=== PATIENT | male | born 1970 | race Caucasian/White ===

== ENCOUNTER 2018-08-22 06:55 | Day surgery (SDC) | payer BC ==
[2018-08-17 15:23] VITALS: BMI 32.5
[~2018-08-22 06:55] MED LIST: LACTATED RINGERS 1,000 ML IV SCH
[2018-08-22 07:20] VITALS: TEMP 98.4
[2018-08-22] MEDS ORDERED: PROPOFOL 10 MG/ML 20 ML VIAL IV ONE (08:07)
[2018-08-22] MEDS ORDERED: LIDOCAINE 1% INJ 10MG/ML (20 ML MDV) ONE (08:07)
[2018-08-22 08:35] VITALS: RESP 16
[2018-08-22 08:54] VITALS: BP 120/72; PULSE 79
--- NOTE | 2018-08-22 09:46 | P.PCN ---
Date of Procedure: 08/22/18 Procedure(s) Performed: Procedure: Total colonoscopy. Preoperative diagnosis: Exam within normal limits. Preparation: HalfLytely prep. Sedation: Was provided by anesthesia. Brief clinical history: The patient is a 48-year-old male who is scheduled for this evaluation for screening for neoplasia age being his risk factor. There is no family history of colon cancer. He has no abdominal complaints, bleeding or anemia. He had one or 2 colonoscopies. He was in his 40s for issues with rectal bleeding. Procedure: With the patient on his left lateral decubitus position and after informed consent and adequate sedation, the perianal area was inspected and it did not show any fissures or fistulas. There were no masses felt on digital rectal examination. The Olympus CFQ 160L video colonoscope was then inserted in the rectum in the usual fashion and advanced to the cecum. The preparation was less than ideal. Where visualised, the mucosa appeared healthy. No polyps or tumors were seen or any obvious diverticular disease or other pathology. I retroflexed the endoscope in the rectum before the endoscope was withdrawn. Low -grade internal hemorrhoids were noted with no evidence of bleeding. The patient tolerated the procedure well. Plan: The patient was reassured. Discussed dietary measures and local care for hemorrhoids. He will follow up with you as planned. I recommended repeat exam in 5 years before going with a 10 years scheduled.
== END 2018-08-22 09:18 | disposition home or self-care (01) ==
LOC: ORWHC2ENDO 06:55
DX: Z12.11 Encounter for screening for malignant neoplasm of colon (principal); K64.8 Other hemorrhoids; F17.210 Nicotine dependence, cigarettes, uncomplicated; N40.0 Benign prostatic hyperplasia without lower urinary tract symptoms; Z79.899 Other long term (current) drug therapy; Z87.442 Personal history of urinary calculi
CPT/HCPCS: 45378; J2001; J2704

== ENCOUNTER 2022-07-13 21:16 | Observation (INO) | payer BC ==
[2022-07-14] MEDS ORDERED: KETOROLAC 15 MG/ML 1 ML VIAL IVP STA (00:19)
[2022-07-14] MEDS ORDERED: SODIUM CHLORIDE 0.9% 1,000 ML IV ONE (00:19)
[2022-07-14] MEDS ORDERED: TAMSULOSIN 0.4 MG CAP.ER.24H PO STA (00:20)
[2022-07-14] MEDS ORDERED: ONDANSETRON 4 MG/2 ML VIAL IVP STA (00:20)
[2022-07-14] MEDS ORDERED: MORPHINE SULFATE 4 MG/ML SYRINGE IV STA (00:20)
[2022-07-14 00:34] LABS: Basophils # (A) 0.1 k/uL (0-0.2); Basophils % (A) 0 %; Eosinophils # (A) 0.1 k/uL (0-0.7); Eosinophils % (A) 1 %; HCT 47.9 % (39.0-53.0); HGB 15.4 gm/dL (13.0-17.5); Lymphocytes # (A) 2.1 k/uL (1.0-4.8); Lymphocytes % (A) 17 %; MCH 30.2 pg (25.0-35.0); MCHC 32.1 g/dL (31.0-37.0); Mean Platelet Volume 8.1; Monocytes # (A) 0.6 k/uL (0-1.0); Monocytes % (A) 5 %; Neutrophils # (A) 9.7 k/uL (1.3-7.7); Neutrophils % (A) 77 %; Platelet Count 184 k/uL (150-450); RBC 5.09 m/uL (4.30-5.90); RDW 12.4 % (11.5-15.5); WBC 12.6 k/uL (3.8-10.6)
[2022-07-14 00:46] LABS: ALT 30 U/L (4-49); AST 26 U/L (17-59); African American GFR (CKD) >90 (>60 ml/min/1.73 sqM); Albumin 4.3 g/dL (3.5-5.0); Alkaline Phosphatase 99 U/L (38-126); Anion Gap 12 mmol/L; Blood Urea Nitrogen 14 mg/dL (9-20); Calcium 9.1 mg/dL (8.4-10.2); Carbon Dioxide 21 mmol/L (22-30); Chloride 104 mmol/L (98-107); Glucose 107 mg/dL (74-99); Non-African American GFR(CKD) 83 (>60 ml/min/1.73 sqM); Potassium 4.4 mmol/L (3.5-5.1); Sodium 137 mmol/L (137-145); Total Bilirubin 0.7 mg/dL (0.2-1.3); Total Protein 6.6 g/dL (6.3-8.2)
--- NOTE | 2022-07-14 00:51 | CT ---
EXAMINATION TYPE: CT abdomen pelvis wo con DATE OF EXAM: 07/14/2022 COMPARISON: 02/26/2013 HISTORY: pain/kidney stone. prior on PACS CT DLP: 795.8 mGycm Automated exposure control for dose reduction was used. Images obtained from the diaphragm to the floor the pelvis with no contrast. The lung bases are clear. No pleural effusion. Heart size is normal. No pericardial effusion. Liver and spleen are intact. Stomach is intact. No pancreatic mass. Gallbladder appears normal. The b ile ducts are not dilated. There is no adrenal mass. There is right-sided hydronephrosis with obstructing 9 mm calculus at the r ight ureteropelvic junction. There is 3 mm calculus lateral right kidney. Left kidney shows no sign o f stone or obstruction. No retroperitoneal adenopathy. Appendix appears normal. The bladder distends smoothly. There is small fat-containing left inguinal hernia.. No free fluid in the pelvis. There is no ascites or free air. No signs of bowel obstruction. The lumbar vertebrae have normal spac ing. There is a L5 spondylolysis with first-degree L5-S1 spondylolisthesis. No lumbar compression fra cture. Bony pelvis is intact. The hip joints are intact. IMPRESSION: Obstructing calculus at the right ureteropelvic junction with hydronephrosis. Obstruction similar to old exam. Normal appendix.
[2022-07-14] MEDS ORDERED: NALOXONE 0.4 MG/ML 1 ML VIAL IV PRN (00:59)
[2022-07-14] MEDS ORDERED: HYDROmorphone 1 MG/ML 1 ML SYRINGE IVP PRN (00:59)
--- NOTE | 2022-07-14 01:05 | ED ---
Back Pain HPI - General Chief Complaint: Back Pain/Injury Stated Complaint: Kidney Stone Time Seen by Provider: 07/14/22 00:15 Source: patient, RN notes reviewed Limitations: no limitations - History of Present Illness Initial Comments: Patient presents after having sudden onset of right back pain in the late afternoon. Patient states she's had waxing and waning sharp pain ever since. No alleviating or exacerbating factors. Some nausea. Radiates down into the suprapubic area. No hematuria. patient has had several kidney stones in the past which required intervention. No headache, no fever or chills, no changes in vision or hearing, no sore throat or difficulty with speech, no neck pain, no chest pain or shortness of breath, no abdominal pain, no nausea or vomiting, no changes in urination or bowel movements, no numbness or tingling, no extremity pain, no skin rashes or lesions. Past medical, surgical, social, and family history reviewed. MD Complaint: back pain - Related Data Home Medications Medication Instructions Recorded Confirmed Tamsulosin [Flomax] 0.4 mg PO BID 08/17/18 08/22/18 Allergies Allergy/AdvReac Type Severity Reaction Status Date / Time No Known Allergies Allergy Verified 07/13/22 21:43 Review of Systems ROS Statement: Those systems with pertinent positive or pertinent negative responses have been documented in the HPI. ROS Other: All systems not noted in ROS Statement are negative. Past Medical History Past Medical History: Prostate Disorder Additional Past Medical History / Comment(s): SCREENING. KIDNEY STONES History of Any Multi-Drug Resistant Organisms: None Reported Past Surgical History: Adenoidectomy, Tonsillectomy Additional Past Surgical History / Comment(s): COLONOSCOPY. SX FOR KIDNEY STONES X 2 Past Anesthesia/Blood Transfusion Reactions: No Reported Reaction Past Psychological History: No Psychological Hx Reported Smoking Status: Current every day smoker Past Alcohol Use History: Occasional Past Drug Use History: Marijuana - Past Family History Mother Family Medical History: No Reported History General Exam - General Exam Comments Initial Comments: Vital signs stable, patient is in distress secondary to right flank pain. Does not appear to be ill or toxic. Limitations: no limitations General appearance: alert, in distress Head exam: Present: atraumatic, normocephalic, normal inspection Eye exam: Present: normal appearance, PERRL, EOMI. Absent: scleral icterus, conjunctival injection, periorbital swelling ENT exam: Present: normal exam, mucous membranes moist Neck exam: Present: normal inspection, full ROM. Absent: tenderness, meningismus, lymphadenopathy Respiratory exam: Present: normal lung sounds bilaterally. Absent: respiratory distress, wheezes, rales, rhonchi, stridor Cardiovascular Exam: Present: regular rate, normal rhythm, normal heart sounds. Absent: systolic murmur, diastolic murmur, rubs, gallop, clicks GI/Abdominal exam: Present: soft, normal bowel sounds. Absent: distended, tenderness, guarding, rebound, rigid Extremities exam: Present: normal inspection, full ROM, normal capillary refill. Absent: tenderness, pedal edema, joint swelling, calf tenderness Back exam: Present: normal inspection, CVA tenderness (R). Absent: CVA tender ness (L) Neurological exam: Present: alert, oriented X3, CN II-XII intact Psychiatric exam: Present: normal affect, normal mood Skin exam: Present: warm, dry, intact, normal color. Absent: rash Course Vital Signs 07/13/22 21:42 Temperature 98.1 F Pulse Rate 60 Respiratory 18 Rate Blood Pressure 129/77 O2 Sat by Pulse 97 Oximetry - Reevaluation(s) Reevaluation #1: 07/14/22 00:56 patient has an obstructing calculus at the right ureteropelvic junction with hydronephrosis. - Consultations Consultation #1: Case discussed with on-call urology as well as the on-call APC from [facility] Medical Decision Making - Medical Decision Making patient computed tomography scan shows evidence of obstructive uropathy. I did discuss this case in detail with the on-call urologist, Dr. Almanza who once the patient admitted, kept nothing by mouth, will provide hydration, pain control, nausea control. All findings discussed with the patient. All questions answered. The case was discussed in detail with ED attending physician. Presentation, findings, treatment plan discussed in detail. Combination Building Inspector Dr. Aaron - Lab Data Result diagrams: 07/14/22 00:17 07/14/22 00:17 Lab Results 07/14/22 07/14/22 Range/Units 00:17 00:17 WBC 12.6 H (3.8-10.6) k/uL RBC 5.09 (4.30-5.90) m/uL Hgb 15.4 (13.0-17.5) gm/dL Hct 47.9 (39.0-53.0) % MCV 94.0 (80.0-100.0) fL MCH 30.2 (25.0-35.0) pg MCHC 32.1 (31.0-37.0) g/dL RDW 12.4 (11.5-15.5) % Plt Count 184 (150-450) k/uL MPV 8.1 Neutrophils % 77 % Lymphocytes % 17 % Monocytes % 5 % Eosinophils % 1 % Basophils % 0 % Neutrophils # 9.7 H (1.3-7.7) k/uL Lymphocytes # 2.1 (1.0-4.8) k/uL Monocytes # 0.6 (0-1.0) k/uL Eosinophils # 0.1 (0-0.7) k/uL Basophils # 0.1 (0-0.2) k/uL Sodium 137 (137-145) mmol/L Potassium 4.4 (3.5-5.1) mmol/L Chloride 104 (98-107) mmol/L Carbon Dioxide 21 L (22-30) mmol/L Anion Gap 12 mmol/L BUN 14 (9-20) mg/dL Creatinine 1.02 (0.66-1.25) mg/dL Est GFR (CKD-EPI)AfAm >90 (>60 ml/min/1.73 sqM) Est GFR (CKD-EPI)NonAf 83 (>60 ml/min/1.73 sqM) Glucose 107 H (74-99) mg/dL Calcium 9.1 (8.4-10.2) mg/dL Total Bilirubin 0.7 (0.2-1.3) mg/dL AST 26 (17-59) U/L ALT 30 (4-49) U/L Alkaline Phosphatase 99 (38-126) U/L Total Protein 6.6 (6.3-8.2) g/dL Albumin 4.3 (3.5-5.0) g/dL Disposition Clinical Impression: Acute unilateral obstructive uropathy, Hydronephrosis of right kidney, Renal colic on right side Disposition: [facility] Condition: Stable Referrals: Stefanie Hoff DO [Primary Care Provider] - 1-2 days Time of Disposition: 00:57 Decision to Admit Reason: Admit from EC Decision Date: 07/14/22
[2022-07-14] MEDS: SODIUM CHLORIDE 0.9% 1,000 ML IV SCH ×3 (08:58→17:21)
[2022-07-14] MEDS: ONDANSETRON 4 MG/2 ML VIAL IVP PRN ×2 (09:04→22:55)
[2022-07-14] MEDS: KETOROLAC 15 MG/ML 1 ML VIAL IVP PRN (09:05)
--- NOTE | 2022-07-14 09:24 | P.HPIM ---
History of Present Illness 52 years old male. With past medical history of kidney stone Patient presents because of right flank pain was going on off for a few days however yesterday at around 6:30 AM it was more severe about 08/03, patient could not bear the pain is completely emergency room his pain now is better controlled with Toradol related 03/03 as he describes. The pain is in the right flank and lower back radiating across the front into the right groin and testicle. He was able to be only once, he denies dysuria or urgency. He says he has chr onic difficulty in taking his Flomax at home. Vitals are stable and patient is afebrile. And other vitals are stable Labs showing WBC 7.7 and 12.6K. Rest of CBC, BMP, liver enzymes are unremarkable. CT of the abdomen and pelvis without contrast: Obstructing calculus at the right ureteropelvic junction with hydronephrosis. In the emergency room received Toradol, morphine, and loaded and normal saline Review of Systems Review of systems CONSTITUTIONAL: No fever, no malaise, no fatigue. HEENT: No recent visual problems or hearing problems. Denied any sore throat. CARDIOVASCULAR: No orthopnea, PND, no palpitations, no syncope. PULMONARY: No shortness of breath, no cough, no hemoptysis. GASTROINTESTINAL: No diarrhea, . Normoactive bowel sounds. NEUROLOGICAL: No headaches, no weakness, no numbness. HEMATOLOGICAL: Denies any bleeding or petechiae. GENITOURINARY: Denies any burning micturition, frequency, or urgency. MUSCULOSKELETAL/RHEUMATOLOGICAL: Denies any joint pain, swelling, or any muscle pain. ENDOCRINE: Denies any polyuria or polydipsia. Past Medical History Past Medical History: Prostate Disorder Additional Past Medical History / Comment(s): SCREENING. KIDNEY STONES History of Any Multi-Drug Resistant Organisms: None Reported Past Surgical History: Adenoidectomy, Tonsillectomy Additional Past Surgical History / Comment(s): COLONOSCOPY. SX FOR KIDNEY STONES X 2 Past Anesthesia/Blood Transfusion Reactions: No Reported Reaction Past Psychological History: No Psychological Hx Reported Smoking Status: Current every day smoker Past Alcohol Use History: Occasional Past Drug Use History: Marijuana - Past Family History Mother Family Medical History: No Reported History Medications and Allergies Home Medications Medication Instructions Recorded Confirmed Type Tamsulosin [Flomax] 0.4 mg PO BID 08/17/18 07/14/22 History Ascorbic Acid [Vitamin C] 1,000 mg PO DAILY 07/14/22 07/14/22 History [place]-3/Dha/Epa/Fish Oil [Fish Oil 1 cap PO DAILY 07/14/22 07/14/22 History 1,000 mg Softgel] Allergies Allergy/AdvReac Type Severity Reaction Status Date / Time No Known Allergies Allergy Verified 07/14/22 07:58 Physical Exam Vitals: Vital Signs Temp Pulse Resp BP Pulse Ox 07/14/22 08:53 46 L 18 115/78 97 07/14/22 05:08 97.2 F L 60 22 129/87 98 07/13/22 21:42 98.1 F 60 18 129/77 97 Intake and Output 07/13/22 07/14/22 07/14/22 22:59 06:59 14:59 Other: Weight 104.326 kg -GENERAL: The patient is alert and oriented x3, not in any acute distress. Obese HEENT: Pupils are round and equally reacting to light. EOMI. No scleral icterus. No conjunctival pallor. Normocephalic, atraumatic. No pharyngeal erythema. No thyromegaly. CARDIOVASCULAR: S1 and S2 present. No murmurs, rubs, or gallops. PULMONARY: Chest is clear to auscultation, no wheezing or crackles. -ABDOMEN: Soft, nondistended, normoactive bowel sounds. No palpable organomegaly. Right flank tenderness, no rebound tenderness or guarding MUSCULOSKELETAL: No joint swelling or deformity. EXTREMITIES: No cyanosis, clubbing, or pedal edema. NEUROLOGICAL: Gross neurological examination did not reveal any focal deficits. SKIN: No rashes. no petechiae. Obese Results CBC & Chem 7: 07/14/22 00:17 07/14/22 00:17 Labs: Abnormal Lab Results - Last 24 Hours (Table) 07/14/22 07/14/22 Range/Units 00:17 00:17 WBC 12.6 H (3.8-10.6) k/uL Neutrophils # 9.7 H (1.3-7.7) k/uL Carbon Dioxide 21 L (22-30) mmol/L Glucose 107 H (74-99) mg/dL Assessment and Plan Assessment: Obstructing right calculus at the right ureteropelvic junction with right hy dronephrosis right flank pain secondary to above Obesity with BMI of 31.2. Plan: This is a pleasant 52 years old male who presents with a right kidney stone and right hydronephrosis Continue with pain management Continue with IV fluid Urology consult Labs and medication were reviewed.. Continue same treatment. Continue with symptomatic treatment. Resume home medication. Monitor lytes and vitals. DVT and GI prophylaxis. Further recommendations as per clinical course of the patient DVT prophylaxis: Subcutaneous heparin GI Prophylaxis: Pepcid
--- NOTE | 2022-07-14 12:51 | P.GSCN ---
History of Present Illness Consult date: 07/14/22 Reason for Consult: Right renal colic Requesting physician: Thor E Sheet History of present illness: The patient is a 52-year-old white male with a history of kidney stones. He has previously been treated by Dr. Encarnacion. He underwent ureteroscopy with laser lithotripsy, followed by ESWL to treat a right renal pelvic calculus in 2012. His calculi were composed of calcium oxalate. Yesterday evening, he experienced acute onset of right flank pain radiating to the right groin. The pain was severe, and he presented to the ER. CT scan showed evidence of right hydronephrosis due to an 8.6 mm right UPJ calculus. An additional 3 mm right renal calculus was seen. The patient's pain was intractable and he was admitted for pain management and IV hydration. Review of Systems - Constitutional Denies chills, Denies fever - Genitourinary Reports flank pain, Reports kidney stones, Denies dysuria, Denies hematuria Past Medical History Past Medical History: Prostate Disorder Additional Past Medical History / Comment(s): SCREENING. KIDNEY STONES History of Any Multi-Drug Resistant Organisms: None Reported Past Surgical History: Adenoidectomy, Tonsillectomy Additional Past Surgical History / Comment(s): COLONOSCOPY. SX FOR KIDNEY STONES X 2 Past Anesthesia/Blood Transfusion Reactions: No Reported Reaction Past Psychological History: No Psychological Hx Reported Smoking Status: Current every day smoker Past Alcohol Use History: Occasional Past Drug Use History: Marijuana - Past Family History Mother Family Medical History: No Reported History Medications and Allergies Home Medications Medication Instructions Recorded Confirmed Type Tamsulosin [Flomax] 0.4 mg PO BID 08/17/18 07/14/22 History Ascorbic Acid [Vitamin C] 1,000 mg PO DAILY 07/14/22 07/14/22 History [place]-3/Dha/Epa/Fish Oil [Fish Oil 1 cap PO DAILY 07/14/22 07/14/22 History 1,000 mg Softgel] Allergies Allergy/AdvReac Type Severity Reaction Status Date / Time No Known Allergies Allergy Verified 07/14/22 12:45 Surgical - Exam Vital Signs Temp Pulse Resp BP Pulse Ox 98.1 F 60 18 129/77 97 07/13/22 21:42 07/13/22 21:42 07/13/22 21:42 07/13/22 21:42 07/13/22 21:42 - General well developed, well nourished, moderate distress - Neck no masses, trachea midline - Respiratory normal respiratory effort - Abdomen Abdomen: soft, non tender, no guarding, no rigid, no rebound - Psychiatric oriented to time, oriented to person, oriented to place, speech is normal, memory intact Results - Labs 07/14/22 00:17 07/14/22 00:17 Abnormal Lab Results - Last 24 Hours (Table) 07/14/22 07/14/22 Range/Units 00:17 00:17 WBC 12.6 H (3.8-10.6) k/uL Neutrophils # 9.7 H (1.3-7.7) k/uL Carbon Dioxide 21 L (22-30) mmol/L Glucose 107 H (74-99) mg/dL Diabetes panel 07/14/22 Range/Units 00:17 Sodium 137 (137-145) mmol/L Potassium 4.4 (3.5-5.1) mmol/L Chloride 104 (98-107) mmol/L Carbon Dioxide 21 L (22-30) mmol/L BUN 14 (9-20) mg/dL Creatinine 1.02 (0.66-1.25) mg/dL Glucose 107 H (74-99) mg/dL Calcium 9.1 (8.4-10.2) mg/dL AST 26 (17-59) U/L ALT 30 (4-49) U/L Alkaline Phosphatase 99 (38-126) U/L Total Protein 6.6 (6.3-8.2) g/dL Albumin 4.3 (3.5-5.0) g/dL Calcium panel 07/14/22 Range/Units 00:17 Calcium 9.1 (8.4-10.2) mg/dL Albumin 4.3 (3.5-5.0) g/dL Pituitary panel 07/14/22 Range/Units 00:17 Sodium 137 (137-145) mmol/L Potassium 4.4 (3.5-5.1) mmol/L Chloride 104 (98-107) mmol/L Carbon Dioxide 21 L (22-30) mmol/L BUN 14 (9-20) mg/dL Creatinine 1.02 (0.66-1.25) mg/dL Glucose 107 H (74-99) mg/dL Calcium 9.1 (8.4-10.2) mg/dL Adrenal panel 07/14/22 Range/Units 00:17 Sodium 137 (137-145) mmol/L Potassium 4.4 (3.5-5.1) mmol/L Chloride 104 (98-107) mmol/L Carbon Dioxide 21 L (22-30) mmol/L BUN 14 (9-20) mg/dL Creatinine 1.02 (0.66-1.25) mg/dL Glucose 107 H (74-99) mg/dL Calcium 9.1 (8.4-10.2) mg/dL Total Bilirubin 0.7 (0.2-1.3) mg/dL AST 26 (17-59) U/L ALT 30 (4-49) U/L Alkaline Phosphatase 99 (38-126) U/L Total Protein 6.6 (6.3-8.2) g/dL Albumin 4.3 (3.5-5.0) g/dL - Imaging CT scan - abdomen: report reviewed, image reviewed Assessment and Plan (1) Calculus of ureter Current Visit: Yes Status: Acute Code(s): N20.1 - CALCULUS OF URETER SNOMED Code(s): 75363708 (2) Hydronephrosis with renal and ureteral calculous obstruction Current Visit: Yes Status: Acute Code(s): N13.2 - HYDRONEPHROSIS WITH RENAL AND URETERAL CALCULOUS OBSTRUCTION SNOMED Code(s): 853862813 Plan: I had a lengthy discussion with Mr. Montez, reviewing alternative treatment options. He will undergo cystoscopy with right ureteral stent placement later today. I am hopeful that this will alleviate his symptoms sufficiently that he can then be managed as an outpatient. Arrangements will be made for him to undergo elective ureteroscopy with laser lithotripsy or ESWL in 2-3 weeks. Time with Patient: Greater than 30
[2022-07-14 12:52] LABS: Appearance,Urine Clear (Clear); Bilirubin,Urine Negative (Negative); Blood,Urine Negative (Negative); Calcium Oxalate Crystals,Urine Rare /hpf; Color,Urine Dark Yellow; Glucose,Urine (UA) Negative (Negative); Hyaline Casts,Urine 3 /lpf (0-2); Ketones,Urine 1+ (Negative); Leukocyte Esterase,Urine Negative (Negative); Mucus,Urine Few /hpf; Nitrite,Urine Negative (Negative); PH, Urine 5.5 (5.0-8.0); Protein,Urine 1+ (Negative); RBC,Urine 74 /hpf (0-5); Specific Gravity,Urine 1.034 (1.001-1.035); Urobilinogen,Urine <2.0 mg/dL (<2.0); WBC,Urine 4 /hpf (0-5)
[2022-07-14] MEDS ORDERED: DEXAMETHASONE SOD PHOSPHATE 4 MG/ML 1 ML VIAL IV ONE (13:11)
[2022-07-14] MEDS ORDERED: LACTATED RINGERS 1,000 ML IV ONE ×2 (13:12→14:36)
[2022-07-14] MEDS ORDERED: ONDANSETRON 4 MG/2 ML VIAL IVP ONE (13:12)
[2022-07-14] MEDS ORDERED: fentaNYL (PF) 50 MCG/ML 2 ML AMP ONE (13:39)
[2022-07-14] MEDS ORDERED: SUCCINYLCHOLINE CHLORIDE 200 MG/10 ML VIAL IV ONE (13:39)
[2022-07-14] MEDS ORDERED: MIDAZOLAM 2 MG/2 ML VIAL ONE (13:39)
[2022-07-14] MEDS ORDERED: LIDOCAINE 2% INJ 20 MG/ML (2 ML VIAL) ONE (13:39)
[2022-07-14] MEDS ORDERED: PROPOFOL 10 MG/ML 20 ML VIAL IV ONE (13:39)
--- NOTE | 2022-07-14 14:38 | FL ---
Intraoperative/procedural fluoroscopic services were provided. Total fluoroscopy time is 10 seconds w ith a total of 3 submitted images to PACS. Please see the operative/procedural note for further detai ls.
--- NOTE | 2022-07-14 14:45 | P.OP ---
Date of Procedure: 07/14/22 Preoperative Diagnosis: Right hydronephrosis secondary to right UPJ calculus Postoperative Diagnosis: Same Procedure(s) Performed: Cystoscopy, right ureteral stent insertion Anesthesia: NICK Surgeon: Walter Almanza Estimated Blood Loss (ml): 0 IV fluids (ml): 700 Pathology: none sent Condition: stable Disposition: PACU Indications for Procedure: The patient is a 52-year-old white male with a history of kidney stones. He has previously been treated by Dr. Encarnacion. He underwent ureteroscopy with laser lithotripsy, followed by ESWL to treat a right renal pelvic calculus in 2012. His calculi were composed of calcium oxalate. Yesterday evening, he experienced acute onset of right flank pain radiating to the right groin. The pain was severe, and he presented to the ER. CT scan showed evidence of right hydronephrosis due to an 8.6 mm right UPJ calculus. An additional 3 mm right renal calculus was seen. The patient's pain was intractable and he was admitted for pain management and IV hydration. He now comes for right ureteral stent insertion. Operative Findings: Obstructing right UPJ calculus. A ureteral stent was successfully placed, with drainage of concentrated urine containing old blood. Description of Procedure: The patient was taken to the operating room and placed in the dorsolithotomy position, with legs supported in Randolph stirrups. The external genitalia was prepped and draped sterilely. The 30 lens was used to introduce the 22-Colombian Stortz cystoscopic sheath through the urethra and into the bladder under direct vision. The prostatic urethra showed evidence of trilobar enlargement with visual occlusion. The bladder was examined in its entirety. Both ureteral orifices were of normal anatomic location and configuration. No tumors or foreign bodies were seen. A 0.035 inch Glidewire was passed through the cystoscope. The right ureteral orifice was cannulated, and the Glidewire was slowly advanced beyond the calculus and up to the renal pelvis. A 26 cm, 6- Colombian double-J ureteral stent was placed over the wire. Proper stent positioning was verified fluoroscopically and endoscopically. The calculus was pushed back into the kidney. Concentrated urine containing old blood drained through the stent. The bladder was emptied and the cystoscope removed. The patient tolerated the procedure well was taken to the recovery room in stable condition.
[2022-07-14 14:50] VITALS: RESP 16
[2022-07-14] MEDS ORDERED: TAMSULOSIN 0.4 MG CAP.ER.24H PO SCH (18:30)
[2022-07-14] MEDS: HEPARIN SODIUM,PORCINE/PF 5,000 UNIT/0.5 ML SYRINGE SQ SCH (20:18)
[2022-07-14] MEDS: FAMOTIDINE 20 MG/2 ML VIAL IV SCH (20:19)
[2022-07-15] MEDS: KETOROLAC 15 MG/ML 1 ML VIAL IVP PRN (02:09)
[2022-07-15 02:41] VITALS: PULSE 65
[2022-07-15] MEDS: SODIUM CHLORIDE 0.9% 1,000 ML IV SCH (03:44)
[2022-07-15 07:05] LABS: HCT 45.1 % (39.0-53.0); HGB 14.7 gm/dL (13.0-17.5); MCH 31.2 pg (25.0-35.0); MCHC 32.6 g/dL (31.0-37.0); MCV 95.8 fL (80.0-100.0); Platelet Count 168 k/uL (150-450); RBC 4.71 m/uL (4.30-5.90); RDW 12.3 % (11.5-15.5)
[2022-07-15] MEDS ORDERED: HYDROcodone/APAP 5-325MG 1 EACH TAB PO PRN (08:26)
[2022-07-15] MEDS ORDERED: DOCUSATE 100 MG CAP PO PRN (08:26)
[2022-07-15] MEDS: FAMOTIDINE 20 MG/2 ML VIAL IV SCH (08:43)
--- NOTE | 2022-07-15 09:55 | P.PN ---
Subjective Progress Note Date: 07/15/22 Principal diagnosis: Right ureteral calculus Mr. Montez underwent right ureteral stent insertion yesterday. He experienced considerable pain yesterday, but is feeling somewhat better today. He continues to report some difficulty voiding, as well as right flank discomfort during micturition. I reassured him that the latter is the result of the ureteral stent. He experienced some hematuria postoperatively, which is improving. He also reports mild dysuria. Objective - Vital Signs Vital signs: Vital Signs Temp 98.3 F 07/15/22 02:00 Pulse 65 07/15/22 02:00 Resp 16 07/15/22 02:00 BP 143/77 07/15/22 02:00 Pulse Ox 93 L 07/15/22 02:00 FiO2 Intake & Output 07/14/22 07/15/22 07/15/22 18:59 06:59 18:59 Intake Total 950 Output Total 100 Balance 850 Weight 104.326 kg Intake: IV 950 Output: Urine 100 Estimated Blood Loss 0 Other: Voiding Method Toilet Toilet # Voids 2 - Constitutional General appearance: Present: average body habitus, no acute distress - Psychiatric Psychiatric: Present: A&O x's 3, appropriate affect - Labs CBC & Chem 7: 07/15/22 06:45 07/14/22 00:17 Labs: Abnormal Lab Results - Last 24 Hours (Table) 07/14/22 07/15/22 Range/Units 12:31 06:45 WBC 16.0 H (3.8-10.6) k/uL Urine Protein 1+ H (Negative) Urine Ketones 1+ H (Negative) Urine RBC 74 H (0-5) /hpf Calcium Oxalate Crystal Rare H (None) /hpf Hyaline Casts 3 H (0-2) /lpf Urine Mucus Few H (None) /hpf Assessment and Plan (1) Calculus of ureter Current Visit: Yes Status: Acute Code(s): N20.1 - CALCULUS OF URETER SNOMED Code(s): 49350326 (2) Hydronephrosis with renal and ureteral calculous obstruction Current Visit: Yes Status: Acute Code(s): N13.2 - HYDRONEPHROSIS WITH RENAL AND URETERAL CALCULOUS OBSTRUCTION SNOMED Code(s): 759501129 (3) Benign prostatic hyperplasia with lower urinary tract symptoms Current Visit: Yes Status: Acute Code(s): N40.1 - BENIGN PROSTATIC HYPERPLASIA WITH LOWER URINARY TRACT SYMP SNOMED Code(s): 414245280 Plan: I have suggested to Mr. Montez that he continue to take tamsulosin 0.8 mg daily. Bladder scan will be checked to confirm the bladder emptying is adequate. I believe the leukocytosis as the results of his renal colic and the procedure, and from my standpoint he is stable for discharge as long as he is comfortable enough to allow this. Arrangements will be made for him to undergo right ureteroscopy with laser lithotripsy as an outpatient.
[2022-07-15] MEDS: HEPARIN SODIUM,PORCINE/PF 5,000 UNIT/0.5 ML SYRINGE SQ SCH (10:05)
[2022-07-15 11:13] VITALS: BP 115/76; TEMP 98
[2022-07-15] MEDS ORDERED: LIDOCAINE 2% INJ 20 MG/ML (2 ML VIAL) ONE (13:39)
[2022-07-15] MEDS ORDERED: SUCCINYLCHOLINE CHLORIDE 200 MG/10 ML VIAL IV ONE (13:39)
[2022-07-15] MEDS ORDERED: fentaNYL (PF) 50 MCG/ML 2 ML AMP ONE (13:39)
[2022-07-15] MEDS ORDERED: MIDAZOLAM 2 MG/2 ML VIAL ONE (13:39)
[2022-07-15] MEDS ORDERED: PROPOFOL 10 MG/ML 20 ML VIAL IV ONE (13:39)
[2022-07-15] MEDS ORDERED: FAMOTIDINE 20 MG TAB PO SCH (21:00)
--- NOTE | 2022-07-15 22:12 | P.DS ---
Providers Date of admission: 07/14/22 01:54 Attending physician: Marisa Gueavra Consults: 07/14/22 00:59 Consult Physician Stat Consulting Provider: Walter Almanza Reason/Comments: Obstructive uropathy Do you want consulting provider notified?: Already Contacted Primary care physician: Stefanie Hoff [facility] Course: Diagnoses: Obstructing right calculus at the right ureteropelvic junction with right hydronephrosis right flank pain secondary to above Obesity with BMI of 31.2. Hospital course: 52 years old male. With past medical history of kidney stone Patient presents because of right flank pain was going on off for a few days CT of the abdomen and pelvis without contrast: Obstructing calculus at the right ureteropelvic junction with hydronephrosis. Patient evaluated by urologist and he underwent right ureteral stent placement through cystoscopy, he pushed the 3 mm right ureteral stone back. Patient was sent to the general medical floor in stable condition. With plan for follow-up as an outpatient for possible ureteroscopy and laser lithotripsy in 2-3 weeks per recommendation of Dr. singh as i saw him today and talked to him , Dr. singh confirmed to me patient is stable for discharge and he confirmed to me no need for antibiotics upon discharge. Today patient is back to baseline, he was pleasant and he was asked to be discharged home today. Dr. garber recomme nded Toradol for pain control upon discharge which is provided for him. Also Flomax. Patient was cleared for discharge by Dr. singh Problems and management plan were discussed with the patient and he verbalized understanding and acceptance Patient was found stable and can be discharged home however he needs follow-up as an outpatient. Patient was instructed to follow up with PCP Dr. Lele willingham one week and patient agrees Patient was instructed to follow up with Dr. singh in 2 weeks and he agrees to call and make appointment Physical exam Gen: patient is a AAOx3, no distress CVS: S1-S2, RRR, no murmur Lungs: B/L CTA, no wheezing Abdomen: soft, no distention, no tenderness, positive bowel sounds Extremity: no leg edema or induration Time spent more than 35 minutes Patient Condition at Discharge: Stable Plan - Discharge Summary New Discharge Prescriptions: New Docusate [Colace] 100 mg PO BID PRN 5 Days #10 cap PRN Reason: Constipation Ketorolac [Toradol] 10 mg PO Q6HR 3 Days #10 tab Continue Tamsulosin [Flomax] 0.4 mg PO BID #60 cap [place]-3/Dha/Epa/Fish Oil [Fish Oil 1,000 mg Softgel] 1 cap PO DAILY Ascorbic Acid [Vitamin C] 1,000 mg PO DAILY Discharge Medication List Ascorbic Acid [Vitamin C] 1,000 mg PO DAILY 07/14/22 [History] [place]-3/Dha/Epa/Fish Oil [Fish Oil 1,000 mg Softgel] 1 cap PO DAILY 07/14/22 [History] Docusate [Colace] 100 mg PO BID PRN 5 Days #10 cap 07/15/22 [Rx] Ketorolac [Toradol] 10 mg PO Q6HR 3 Days #10 tab 07/15/22 [Rx] Tamsulosin [Flomax] 0.4 mg PO BID #60 cap 07/15/22 [Rx] Follow up Appointment(s)/Referral(s): Walter Almanza MD [STAFF PHYSICIAN] - 1 Week (OFFICE WILL CONTACT YOU WITH APPOINTMENT DATE/TIME) Stefanie Hoff DO [Primary Care Provider] - 07/17/22 9:00 am (you have appoinement with him on this tuesday 07/17 at 9 am as you informed the medical team , please follow up with your appointment or call to make one in one week) Fred Peña MD [STAFF PHYSICIAN] - 1 Week (Cardiolgist for your slow heart rate. Please call and schedule appointment. ) Patient Instructions/Handouts: Kidney Stones (DC), Renal Colic (GEN), Hydronephrosis (DC), Ureteral Stent Placement (DC) Activity/Diet/Wound Care/Special Instructions: Heart healthy diet activity is restricted till you see your doctor Discharge Disposition: HOME SELF-CARE
== END 2022-07-15 11:00 | disposition home or self-care (01) ==
LOC: EC 21:16 → 4SSUR 07-14 01:54 → INTOOBSV 07-14 01:54 → 4SSUR 07-14 14:55 → UNDODISIN 07-15 11:00
PROVIDERS: ADMIT Internal Medicine; ATTEND Internal Medicine
DX: N13.2 Hydronephrosis with renal and ureteral calculous obstruction (principal); K40.90 Unilateral inguinal hernia, without obstruction or gangrene, not specified as recurrent; M43.17 Spondylolisthesis, lumbosacral region; F17.200 Nicotine dependence, unspecified, uncomplicated; F12.90 Cannabis use, unspecified, uncomplicated; N40.0 Benign prostatic hyperplasia without lower urinary tract symptoms; E66.9 Obesity, unspecified; Z79.899 Other long term (current) drug therapy; Z68.31 Body mass index [BMI] 31.0-31.9, adult
CPT/HCPCS: 96376 ×3; 96372 ×2; 96375 ×2; 96361; 96374; 99285; 36415; 80053; 84443; 85025; 85027; 81001; 74176; 52332; G0378 ×2; C2625; C1769; J2250; J0330; J2270; J1100; J2405; J3010; J1170; J1885 ×2; J2704; J1644 ×2; J2001

== ENCOUNTER 2022-07-21 11:54 | Day surgery (SDC) | payer BC ==
[2022-07-20 09:58] VITALS: BMI 31.1
[2022-07-21] MEDS ORDERED: LACTATED RINGERS 1,000 ML IV ONE ×2 (12:11→14:32)
--- NOTE | 2022-07-21 12:24 | XR ---
KUB HISTORY: Right kidney stone Frontal KUB submitted and correlated to prior CT dated 07/14/2022 There is a right-sided double-J stent in place. Proximal right ureteral calcification is again noted. There are stable calcifications within the pelvis. No evident bowel obstruction or pneumoperitoneum. No other significant interval change. IMPRESSION: Proximal right ureteral calculus.
[2022-07-21] MEDS ORDERED: ONDANSETRON 4 MG/2 ML VIAL ONE (12:27)
--- NOTE | 2022-07-21 13:36 | P.GSHP ---
History of Present Illness H&P Date: 07/21/22 Chief Complaint: Right renal colic The patient is a 52-year-old white male with a history of kidney stones. He has previously been treated by Dr. Encarnacion. He underwent ureteroscopy with laser lithotripsy, followed by ESWL to treat a right renal pelvic calculus in 2012. His calculi were composed of calcium oxalate. Last week, he experienced acute onset of right flank pain radiating to the right groin. The pain was severe, and he presented to the ER. CT scan showed evidence of right hydronephrosis due to an 8.6 mm right UPJ calculus. An additional 3 mm right renal calculus was seen. The patient's pain was intractable and he was admitted for pain management and IV hydration. He underwent right ureteral stent insertion. He now comes for ureteroscopic removal of the calculi. - Constitutional Constitutional: Denies chills, Denies fever - Genitourinary (Male) Genitourinary: Reports flank pain, Reports kidney stones, Denies dysuria, Denies hematuria Past Medical History Past Medical History: COPD, GERD/Reflux, Hearing Disorder / Deafness, Hyperlipidemia, Prostate Disorder Additional Past Medical History / Comment(s): Hx of and current kidney stones. Tinnitus. "Cholesterol is a little high, no treatment needed." Enlarged prostate. History of Any Multi-Drug Resistant Organisms: None Reported Past Surgical History: Adenoidectomy, Tonsillectomy Additional Past Surgical History / Comment(s): Colonoscopy, lithotripsy X2, right ureteral stent placement. Past Anesthesia/Blood Transfusion Reactions: Previous Problems w/ Anesthesia, Motion Sickness Additional Past Anesthesia/Blood Transfusion Reaction / Comment(s): "With ureteral stent placement HR went really low - mid to low 40's". Past Psychological History: No Psychological Hx Reported Smoking Status: Current every day smoker Past Alcohol Use History: Occasional Additional Past Alcohol Use History / Comment(s): SMOKES <1PPD-OFF AND ON SINCE AGE 16(quit from age [age]). Past Drug Use History: Marijuana Additional Drug Use History / Comment(s): LAST USED MARIJUANA 2 WEEKS AGO-INF ORMED TO REFRAIN FROM USE FOR AT LEAST 24 HOURS PRIOR TO PROCEDURE. - Past Family History Mother Family Medical History: No Reported History Medications and Allergies Home Medications Medication Instructions Recorded Confirmed Type Ascorbic Acid [Vitamin C] 1,000 mg PO DAILY 07/14/22 07/20/22 History Docusate [Colace] 100 mg PO BID PRN 5 Days #10 cap 07/15/22 07/20/22 Rx Tamsulosin [Flomax] 0.4 mg PO BID #60 cap 07/15/22 07/21/22 Rx Cholecalciferol [Vitamin D3 (25 25 mcg PO DAILY 07/20/22 07/20/22 History Mcg = 1000 Iu)] Ketorolac [Toradol] 10 mg PO Q6HR PRN 07/20/22 07/21/22 History Vitamin B-12 (Unknown Dose) 1 tab PO DAILY 07/20/22 07/20/22 History Vitamin E (Dl,Tocopheryl Acet) 500 mg PO DAILY 07/20/22 07/20/22 History [Vitamin E (1000 Iu = 450 MG)] Allergies Allergy/AdvReac Type Severity Reaction Status Date / Time No Known Allergies Allergy Verified 07/21/22 12:25 Surgical - Exam Vital Signs Temp Pulse Resp BP Pulse Ox 97.2 F L 88 18 117/75 97 07/21/22 12:23 07/21/22 12:23 07/21/22 12:23 07/21/22 12:23 07/21/22 12:23 - General well developed, well nourished, no distress - Respiratory normal respiratory effort - Abdomen Abdomen: soft, non tender, no guarding, no rigid, no rebound - Genitourinary normal penis with no external lesions, testicles non-tender - Psychiatric oriented to time, oriented to person, oriented to place, speech is normal, memory intact Results - Imaging Abdominal x-ray: report reviewed, image reviewed CT scan - abdomen: report reviewed, image reviewed Assessment and Plan (1) Calculus of ureter Current Visit: No Status: Acute Code(s): N20.1 - CALCULUS OF URETER SNOMED Code(s): 06494374 (2) Calculus of kidney Current Visit: Yes Status: Acute Code(s): N20.0 - CALCULUS OF KIDNEY SNOMED Code(s): 18374132 Plan: Cystoscopy, right ureteroscopy with Holmium laser lithotripsy and possible stone basketing. Replacement of the right ureteral stent will likely be necessary. The procedure then reviewed in detail with the patient and his . Air aware of potential risks, which include anesthesia, bleeding, infection, and ureteral injury.
[2022-07-21] MEDS ORDERED: ONDANSETRON 4 MG/2 ML VIAL IVP ONE (13:38)
[2022-07-21] MEDS ORDERED: DEXAMETHASONE SOD PHOSPHATE 4 MG/ML 1 ML VIAL IVP ONE (13:39)
[2022-07-21] MEDS ORDERED: NEOSTIGMINE 1 MG/ML 10 ML VIAL ONE (13:50)
[2022-07-21] MEDS ORDERED: ROCURONIUM 10 MG/ML (5 ML VIAL) IV ONE (13:50)
[2022-07-21] MEDS ORDERED: PROPOFOL 10 MG/ML 20 ML VIAL IV ONE (13:50)
[2022-07-21] MEDS ORDERED: LIDOCAINE 2% INJ 20 MG/ML (2 ML VIAL) ONE (13:50)
[2022-07-21] MEDS ORDERED: MIDAZOLAM 2 MG/2 ML VIAL ONE (13:50)
[2022-07-21] MEDS ORDERED: PHENYLEPHRINE-0.9% NACL SYG 1,000 MCG/10 ML SYRINGE ONE (13:50)
[2022-07-21] MEDS ORDERED: GLYCOPYRROLATE 0.2 MG/ML 2 ML VIAL ONE (13:50)
[2022-07-21] MEDS ORDERED: fentaNYL (PF) 50 MCG/ML 2 ML AMP ONE (13:50)
[2022-07-21] MEDS ORDERED: ePHEDrine 50 MG/ML 1 ML VIAL ONE (13:50)
[2022-07-21] MEDS ORDERED: SUCCINYLCHOLINE CHLORIDE 200 MG/10 ML VIAL IV ONE (13:50)
--- NOTE | 2022-07-21 15:34 | P.OP ---
Date of Procedure: 07/21/22 Preoperative Diagnosis: Right ureteral calculus, right renal calculus Postoperative Diagnosis: Same Procedure(s) Performed: Cystoscopy, right ureteroscopy with Holmium laser lithotripsy and stone basketing, right ureteral stent change Anesthesia: ZHENA Surgeon: Walter Almanza Estimated Blood Loss (ml): 5 IV fluids (ml): 1,000 Pathology: other (Calculus fragments, sent for chemical analysis) Condition: stable Disposition: PACU Indications for Procedure: The patient is a 52-year-old white male with a history of kidney stones. He has previously been treated by Dr. Encarnacion. He underwent ureteroscopy with laser lithotripsy, followed by ESWL to treat a right renal pelvic calculus in 2012. His calculi were composed of calcium oxalate. Last week, he experienced acute onset of right flank pain radiating to the right groin. The pain was severe, and he presented to the ER. CT scan showed evidence of right hydronephrosis due to an 8.6 mm right UPJ calculus. An additional 3 mm right renal calculus was seen. The patient's pain was intractable and he was admitted for pain management and IV hydration. He underwent right ureteral stent insertion. He now comes for ureteroscopic removal of the calculi. Operative Findings: Right proximal ureteral calculus and right mid pole renal calculus. The renal calculus was removed via stone basketing. The ureteral calculus was removed via laser lithotripsy and stone basketing. Description of Procedure: The patient was taken to the operating room and placed in the dorsolithotomy position, with legs supported in Randolph stirrups. The external genitalia was prepped and draped sterilely. The 30 lens was used to introduce the 21-Irish Oneal cystoscopic sheath through the urethra and into the bladder under direct vision. The prostatic urethra showed evidence of trilobar enlargement. The bladder was examined in its entirety. No abnormalities were seen. The grasping forceps were used to grasp the distal end of the right ureteral stent, which was removed along with the cystoscope. A 0.038 inch Glidewire was passed through the stent and up to the right renal pelvis. The stent was removed, and an 11/13-Irish ureteral access catheter was passed over the wire, up to the proximal ureter. The flexible ureteroscope was then passed through the ureteral access catheter sheath, up to the stone. The 200 micron Holmium laser probe was passed through the ureteroscope, and lithotripsy was performed. The calculus was dense. Dusting of the calculus was performed, but ultimately the calculus broke into several fragments which refluxed into the kidney. The ureteroscope was advanced, and lithotripsy was completed within the kidney. A 1.9-Irish nitinol basket was then used to remove all of the calculus fragments from the kidney. The 3 mm renal calculus was identified and removed intact. Each calyx was examined, and only dust remained. Pullout ureteroscopy was performed. There was no evidence of ureteral trauma. The Glidewire was replaced up to the renal pelvis, and backloaded into the cystoscope, which was advanced into the bladder. A 26 cm, 6-Irish double-J ureteral stent was placed over the wire. Proper stent posit ioning was verified fluoroscopically and endoscopically. The bladder was emptied and the cystoscope removed. The patient tolerated the procedure well and was taken to the recovery room in stable condition. MUSIC ROCKS Report: Procedure Acuity: Elective Stone Size and Location: 8 x 9 mm, right proximal ureter Ureteral Dilation: No Ureteral Access Sheath Used: Yes Stone Sent for Analysis: Yes All Stones/Fragments Were Removed with a Basket: Yes Complications: No Preoperative Antibiotics Given: Yes Stent Placed: Yes If Stent Placed, Was String Left Attached: No If Stent Placed, When is it to be Removed: 1 week Discharge Medications: Tamsulosin, Toradol
--- NOTE | 2022-07-21 15:40 | FL ---
Fluoroscopy HISTORY: Right renal stone 6 seconds fluoroscopy time supplied to the referring clinician. 2 intraoperative C-arm images docume nt the procedure. See dictated report from urology.
[2022-07-21] MEDS ORDERED: KETOROLAC 15 MG/ML 1 ML VIAL IVP ONE (15:42)
[2022-07-21 15:54] VITALS: RESP 16; TEMP 98.7
[2022-07-21] MEDS ORDERED: HYDROmorphone 0.5 MG/0.5 ML SYRINGE IVP ONE (16:00)
[2022-07-21 16:32] VITALS: BP 103/75; PULSE 77
== END 2022-07-21 17:02 | disposition home or self-care (01) ==
LOC: OR 11:54
PROVIDERS: ATTEND Urology
DX: N20.2 Calculus of kidney with calculus of ureter (principal); J44.9 Chronic obstructive pulmonary disease, unspecified; K21.9 Gastro-esophageal reflux disease without esophagitis; E78.5 Hyperlipidemia, unspecified; F17.200 Nicotine dependence, unspecified, uncomplicated; Z79.890 Hormone replacement therapy; Z79.899 Other long term (current) drug therapy
CPT/HCPCS: 52356; 82365; 74018; C1758; J2250; J0330; J1100; J2710; J0690; J2405; J3010; J1885; J2370; J2704; J1170; J2001

== ENCOUNTER → 2023-05-10 | Outpatient (CLI) | payer BC ==
--- NOTE | 2023-05-10 14:05 | US ---
EXAMINATION TYPE: US kidneys/renal and bladder DATE OF EXAM: 05/10/2023 COMPARISON: CT 2021 CLINICAL INDICATION: Male, 53 years old with history of N20.1 N13.2; Follow up, history of kidney sto ying EXAM MEASUREMENTS: Right Kidney: 10.9 x 6.1 x 5.5 cm Left Kidney: 12.3 x 5.7 x 5.3 cm Right Kidney: 1.0cm hypoechoic area superior pole Left Kidney: wnl Bladder: wnl Bilateral Jets seen: Yes There is no evidence for hydronephrosis at this point in time. No nephrolithiasis is seen. No yamini s are identified. The urinary bladder is anechoic. Bilateral ureteral jets are seen. IMPRESSION: 1. No obstructive uropathy. 2. Right lower pole renal cyst. 3. Cortical medullary differentiation maintained. No obstructive calculus visualized.
--- NOTE | 2023-05-10 14:06 | XR ---
EXAMINATION TYPE: XR abdomen 1V DATE OF EXAM: 05/10/2023 COMPARISON: 07/21/2022 HISTORY: Pain TECHNIQUE: One view abdominal series FINDINGS: The osseous structures are intact. The bowel gas pattern is nonspecific. Right double-J ureteral fabiana nt is no longer present. Pelvis: Calcifications in the lower pelvis are stable from prior exam and appear to overlie outside t he course of the genitourinary system.. There is a new 2 mm calcification left upper hemipelvis. Renal outlines: No suspicious calcifications overlying the renal outlines. Chronic deformity of the lateral margin of the right acetabulum and bilateral hip arthropathy. Tiny b one island involving the left femoral head.. IMPRESSION: 1. There is a single new calcifications in the left upper hemipelvis measuring 2 mm in diameter which could potentially be related to a left ureteral calculus.
== END | disposition home or self-care (01) ==
LOC: RADUSWWP 12:49
PROVIDERS: ATTEND Urology
DX: N13.2 Hydronephrosis with renal and ureteral calculous obstruction (principal); N28.1 Cyst of kidney, acquired; Z87.442 Personal history of urinary calculi
CPT/HCPCS: 74018; 76770